=== PATIENT | female | born 1990 | race American Indian/Alaskan Native ===

== ENCOUNTER 2019-08-31 11:59 | Observation (INO) | payer MEDICAID ==
[2019-08-31] MEDS ORDERED: TERBUTALINE 1 MG/1 ML INJ SUB-Q PRN (13:00)
[2019-08-31] MEDS ORDERED: LACTATED RINGERS 1,000 ML ONE (13:03)
[2019-08-31] MEDS ORDERED: METOCLOPRAMIDE 10 MG/2 ML INJ IV ONE (13:09)
[2019-08-31] MEDS ORDERED: LACTATED RINGERS 500 ML IV ONE ×2 (13:10→13:44)
[2019-08-31 13:38] LABS: Basophils # (Auto) 0.1 K/mm3 (0.0-0.1); Basophils % (Auto) 0.8 % (0.0-1.8); Eosinophils % (Auto) 0.4 % (0.0-4.3); Hematocrit 30.2 % (30.3-42.9); Hemoglobin 10.1 gm/dl (10.1-14.3); Lymphocytes # (Auto) 1.3 K/mm3 (1.2-5.4); Lymphocytes % (Auto) 14.1 % (13.4-35.0); Mean Corpuscular HGB Conc 33 % (30-34); Mean Corpuscular Volume 90 fl (79-97); Monocytes % (Auto) 10.7 % (0.0-7.3); Platelet Count 464 K/mm3 (140-440); Red Blood Count 3.34 M/mm3 (3.65-5.03); Red Cell Distribution Width 14.6 % (13.2-15.2)
[2019-08-31 14:03] LABS: Alanine Aminotransferase 8 units/L (7-56); Albumin 3.6 g/dL (3.9-5); BUN/Creatinine Ratio 18; Blood Urea Nitrogen 9 mg/dL (7-17); Calcium 8.8 mg/dL (8.4-10.2); Hemolysis Index 130
[2019-08-31] MEDS ORDERED: MORPHINE 4 MG/1 ML INJ IV ONE (14:22)
[2019-08-31] MEDS: diphenhydrAMINE 50 MG/ML VIAL IV PRN ×2 (15:18→21:26)
[2019-08-31] MEDS: HYDROmorphone 2 MG/1 ML INJ IV PRN ×3 (15:19→21:26)
[2019-08-31] MEDS: PROMETHAZINE 25 MG TAB PO PRN ×2 (15:24→21:23)
[2019-08-31 16:14] LABS: Bilirubin,Urine NEG (Negative); Blood,Urine NEG (Negative); Color,Urine Yellow (Yellow); Mucus,Urine 3+ /HPF
[2019-08-31 16:20] LABS: Amphetamine Screen,Urine PRESUMPTIVE NEGATIVE; Benzodiazepines Screen,Urine PRESUMPTIVE NEGATIVE; Cannabinoid Screen,Urine PRESUMPTIVE POSITIVE; Cocaine Screen,Urine PRESUMPTIVE NEGATIVE; Methadone Screen,Urine PRESUMPTIVE NEGATIVE; Opiate Screen,Urine PRESUMPTIVE POSITIVE
[2019-08-31] MEDS: PANTOPRAZOLE 40 MG INJ IV SCH ×2 (16:25→21:30)
[2019-08-31] MEDS ORDERED: SODIUM CHLORIDE 0.9% 1000 ML 1,000 ML ONE (18:08)
[2019-08-31] MEDS ORDERED: DOCUSATE SODIUM 100 MG CAP PO PRN (18:23)
[2019-08-31] MEDS ORDERED: ACETAMINOPHEN 325 MG TAB PO PRN (18:23)
[2019-08-31] MEDS ORDERED: diphenhydrAMINE 25 MG CAP PO PRN (18:23)
[2019-08-31] MEDS ORDERED: NALOXONE 0.4 MG/1 ML INJ IV PRN (18:31)
[2019-08-31] MEDS: LACTATED RINGERS 1,000 ML IV SCH (19:23)
[2019-08-31] MEDS: DEXTROSE 50% IN WATER (25GM) 50 ML SYRINGE IV PRN (20:25)
[2019-09-01] MEDS: HYDROmorphone 2 MG/1 ML INJ IV PRN ×4 (00:56→10:58)
[2019-09-01] MEDS: LACTATED RINGERS 1,000 ML IV SCH (03:59)
[2019-09-01] MEDS: diphenhydrAMINE 50 MG/ML VIAL IV PRN ×2 (04:00→08:06)
[2019-09-01] MEDS: DEXTROSE 50% IN WATER (25GM) 50 ML SYRINGE IV PRN (07:53)
--- NOTE | 2019-09-01 08:31 | History and Physical Report ---
History of Present Illness Date of examination: 09/01/19 Date of admission: 08/31/19 12:32 Chief complaint: abdominal pain History of present illness: Pt is a 29 year old -[place] JIM 11/28/19 at 27w3d who presents with 3-4 day history of nausea, vomiting and abdominal pain. She has a h/o type I diabetes mellitus diagnosed at age 13 on Novolog insulin pump and subsequent gastroparesis since age 21. She reports painful episodes frequently during p regnancy, with hospitalizations about 3 times per month. 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 She denies vaginal bleeding or leakage of fluid. She lives in [place], [place] and is in town because her is in christian school. She reports no additional complications this . Since admission, the patient has received IV Dilaudid, IV hydration, IV Benadryl, and PO Phenergan which have improved her pain. She reports that she needs to go home today to take care of her daughter because her has school tomorrow. Past History Past Medical History: diabetes (per HPI ), other (Gastroparesis per HPI ) Past Surgical History: section Family/Genetic History: diabetes Social history: no significant social history - Obstetrical History Expected Date of Delivery: 11/28/19 Actual Gestation: 27 Week(s) 3 Day(s) : 2 Para: 1 Hx # Term Pregnancies: 1 Number of Pregnancies: 0 Spontaneous Abortions: 0 Induced : 0 Number of Living Children: 1 Medications and Allergies Allergies Allergy/AdvReac Type Severity Reaction Status Date / Time No Known Allergies Allergy Unverified 08/31/19 12:39 Active Meds: Active Medications Acetaminophen (Tylenol) 650 mg PO Q4H PRN PRN Reason: Pain MILD(1-3)/Fever >100.5/NAIR Dextrose (D50w (25gm) Syringe) 50 ml IV Q30MIN PRN; Protocol PRN Reason: Hypoglycemia Last Admin: 09/01/19 07:53 Dose: 20 ml Documented by: Diphenhydramine HCl (Benadryl) 25 mg IV Q6H PRN PRN Reason: Itching Last Admin: 09/01/19 08:06 Dose: 25 mg Documented by: Diphenhydramine HCl (Benadryl) 25 mg PO Q6H PRN PRN Reason: Itching Docusate Sodium (Colace) 100 mg PO Q12H PRN PRN Reason: Constipation Hydromorphone HCl (Dilaudid) 2 mg IV Q3H PRN PRN Reason: Pain , Severe (7-10) Last Admin: 09/01/19 07:58 Dose: 2 mg Documented by: Lactated Ringer's (Lactated Ringers) 1,000 mls @ 125 mls/hr IV DIRECT [facility] Last Admin: 09/01/19 03:59 Dose: 125 mls/hr Documented by: Multivitamins/Iron/Calcium ( Vitamin) 1 each PO QDAY [facility] Naloxone HCl (Naloxone) 0.1 mg IV Q2MIN PRN PRN Reason: Res Rate </= 8 or 02 SAT < 92% Pantoprazole Sodium (Protonix) 40 mg IV BID [facility] Last Admin: 08/31/19 21:30 Dose: 40 mg Documented by: Promethazine HCl (Phenergan) 25 mg PO Q6H PRN PRN Reason: Nausea And Vomiting Last Admin: 08/31/19 21:23 Dose: 25 mg Documented by: Terbutaline Sulfate (Brethine) 0.25 mg SUB-Q ONCE PRN PRN Reason: Premature Labor Review of Systems All systems: negative - Vital Signs Vital signs: Vital Signs Pulse Pulse Ox 107 H 98 08/31/19 12:42 08/31/19 12:42 Temp Pulse Resp BP Pulse Ox 67.7 F L 86 16 136/92 100 09/01/19 08:01 09/01/19 08:27 09/01/19 08:01 09/01/19 08:03 09/01/19 08:27 - Physical Exam Breasts: Positive: deferred Abdomen: Positive: soft (gravid ) Uterus: Positive: enlarged (gravid ) Extremities: Positive: normal - Obstetrical FHR: auscultation normal Uterine Contraction Monitor Mode: External Uterine Contraction Pattern: Absent Uterine Tone Measurement Phase: Resting Results Result Diagrams: 08/31/19 13:25 08/31/19 13:25 Abnormal lab results 08/31/19 08/31/19 08/31/19 Range/Units 13:25 13:25 14:37 RBC 3.34 L (3.65-5.03) M/mm3 Hct 30.2 L (30.3-42.9) % Plt Count 464 H (140-440) K/mm3 [place] % (Auto) 10.7 H (0.0-7.3) % [place] # 1.0 H (0.0-0.8) K/mm3 Seg Neutrophils % 74.0 H (40.0-70.0) % Sodium 134 L (137-145) mmol/L Creatinine 0.5 L (0.7-1.2) mg/dL Glucose 163 H (65-100) mg/dL POC Glucose 154 H (70-105) Albumin 3.6 L (3.9-5) g/dL Lipase 9 L (13-60) units/L 08/31/19 08/31/19 08/31/19 Range/Units 19:53 21:29 23:18 RBC (3.65-5.03) M/mm3 Hct (30.3-42.9) % Plt Count (140-440) K/mm3 [place] % (Auto) (0.0-7.3) % [place] # (0.0-0.8) K/mm3 Seg Neutrophils % (40.0-70.0) % Sodium (137-145) mmol/L Creatinine (0.7-1.2) mg/dL Glucose (65-100) mg/dL POC Glucose < 40 L 165 H 106 H (70-105) Albumin (3.9-5) g/dL Lipase (13-60) units/L 09/01/19 Range/Units 07:47 RBC (3.65-5.03) M/mm3 Hct (30.3-42.9) % Plt Count (140-440) K/mm3 [place] % (Auto) (0.0-7.3) % [place] # (0.0-0.8) K/mm3 Seg Neutrophils % (40.0-70.0) % Sodium (137-145) mmol/L Creatinine (0.7-1.2) mg/dL Glucose (65-100) mg/dL POC Glucose < 40 L (70-105) Albumin (3.9-5) g/dL Lipase (13-60) units/L All other labs normal. Assessment and Plan A: IUP at 27w3d Type I Diabetes Mellitus on Novolog insulin pump Gastroparesis causing pain, much improved today Previous x 1 Pt request to be discharged today P: Plan to do BPP for well being Advanced diet as tolerated Discharge later today per pt request
[2019-09-01] MEDS: PROMETHAZINE 25 MG TAB PO PRN (08:41)
--- NOTE | 2019-09-01 08:42 | Short Stay Summary ---
Short Stay Documentation Date of service: 09/01/19 - History H&P: dictated Social history: no significant social history - Allergies and Medications Current Medications: Allergies No Known Allergies Allergy (Unverified 08/31/19 12:39) Active Medications Acetaminophen (Tylenol) 650 mg PO Q4H PRN PRN Reason: Pain MILD(1-3)/Fever >100.5/NAIR Dextrose (D50w (25gm) Syringe) 50 ml IV Q30MIN PRN; Protocol PRN Reason: Hypoglycemia Last Admin: 09/01/19 07:53 Dose: 20 ml Documented by: Diphenhydramine HCl (Benadryl) 25 mg IV Q6H PRN PRN Reason: Itching Last Admin: 09/01/19 08:06 Dose: 25 mg Documented by: Diphenhydramine HCl (Benadryl) 25 mg PO Q6H PRN PRN Reason: Itching Docusate Sodium (Colace) 100 mg PO Q12H PRN PRN Reason: Constipation Hydromorphone HCl (Dilaudid) 2 mg IV Q3H PRN PRN Reason: Pain , Severe (7-10) Last Admin: 09/01/19 07:58 Dose: 2 mg Documented by: Lactated Ringer's (Lactated Ringers) 1,000 mls @ 125 mls/hr IV DIRECT [facility] Last Admin: 09/01/19 03:59 Dose: 125 mls/hr Documented by: Multivitamins/Iron/Calcium ( Vitamin) 1 each PO QDAY [facility] Naloxone HCl (Naloxone) 0.1 mg IV Q2MIN PRN PRN Reason: Res Rate </= 8 or 02 SAT < 92% Pantoprazole Sodium (Protonix) 40 mg IV BID [facility] Last Admin: 08/31/19 21:30 Dose: 40 mg Documented by: Promethazine HCl (Phenergan) 25 mg PO Q6H PRN PRN Reason: Nausea And Vomiting Last Admin: 08/31/19 21:23 Dose: 25 mg Documented by: Terbutaline Sulfate (Brethine) 0.25 mg SUB-Q ONCE PRN PRN Reason: Premature Labor - Physical exam Breasts: deferred - Hospital course Hospital course: This patient is a 29-year-old -0-0-1 at 27 weeks 3 days who was admitted for abdominal pain secondary to gastroparesis and type 1 diabetes. While she was hospitalized she received IV Dilaudid, IV hydration, Benadryl, and Phenergan which improved her symptoms significantly. On hospital day #1 the patient requested discharge to care for her other child. She will follow-up with in 1 week with her REC[facility] CENTER COORDINATOR. - Disposition Condition at discharge: Stable Disposition: DC- TO HOME OR SELFCARE - Discharge Diagnoses (1) Diabetic gastroparesis associated with type 1 diabetes mellitus Status: Acute (2) Narcotic dependency, continuous Status: Acute (3) Nausea and vomiting during Status: Acute (4) Status: Acute Qualifiers: Weeks of gestation: 27 weeks Qualified Code(s): Z3A.27 - 27 weeks gestation of (5) Previous section Status: Acute (6) Type I diabetes mellitus Status: Acute Qualifiers: Diabetes mellitus complication status: without complication Qualified Code(s): E10.9 - Type 1 diabetes mellitus without complications Short Stay Discharge Plan Activity: no restrictions Weight Bearing Status: Full Weight Bearing Diet: diabetic Additional Instructions: Please follow up with your RECORD CENTER COORDINATOR within the next 7 days. Follow up with: REMINGTON KAUR MD [Primary Care Provider] - 7 Days Prescriptions: diphenhydrAMINE [Benadryl CAP] 25 mg PO Q6HR PRN #30 capsule PRN Reason: Itching Promethazine [Phenergan] 25 mg PO Q6HR PRN #30 tab PRN Reason: Nausea
[2019-09-01] MEDS ORDERED: PRENATAL VIT27-FE FUMARATE-FOLIC ACID VIT TAB PO SCH (10:00)
[2019-09-01] MEDS: PANTOPRAZOLE 40 MG INJ IV SCH (10:34)
[2019-09-01 11:20] VITALS: BP 112/66
--- NOTE | 2019-09-01 11:43 | Ultrasound Report ---
ULTRASOUND OBSTETRIC LIMITED ULTRASOUND BIOPHYSICAL PROFILE INDICATION / CLINICAL INFORMATION: Evaluate well-being. COMPARISON: None available. FINDINGS: BREATHING MOVEMENT = 2 GROSS BODY MOVEMENT = 2 TONE = 2 QUALITATIVE AMNIOTIC FLUID VOLUME = 2 TOTAL BIOPHYSICAL SCORE = 8/8 AMNIOTIC FLUID INDEX (cm) = not measured PRESENTATION: Cephalic. HEART RATE (beats per minute): 141 ADDITIONAL FINDINGS: None. IMPRESSION: 1. Biophysical Score = 8/8 2. No significant sonographic abnormality identified on this limited exam. Signer Name: Fletcher Robertson MD Signed: 09/01/2019 11:39 AM Workstation Name: [id number]
== END 2019-09-01 12:09 | disposition home or self-care (01) ==
LOC: EDSTATUS 12:26 → EDBD 12:31 → TRG 12:31 → LD 12:31 → TRG 12:32
PROVIDERS: ADMIT Obstetrics & Gynecology; ATTEND Obstetrics & Gynecology
DX: O24.012 Pre-existing type 1 diabetes mellitus, in pregnancy, second trimester (principal); E10.43 Type 1 diabetes mellitus with diabetic autonomic (poly)neuropathy; O21.2 Late vomiting of pregnancy; K31.84 Gastroparesis; O34.219 Maternal care for unspecified type scar from previous cesarean delivery; O99.322 Drug use complicating pregnancy, second trimester; F19.20 Other psychoactive substance dependence, uncomplicated; Z96.41 Presence of insulin pump (external) (internal); Z3A.27 27 weeks gestation of pregnancy
CPT/HCPCS: 36415; 76819; 80053; 80307; 81001; 82150; 82962; 83690; 85025; 96361; 96374; 96375; 96376; C9113; G0378; J1170; J1200; J2270; J2765; J7030; J7120; Q0169

== ENCOUNTER 2019-09-05 23:38 | Outpatient (CLI) | payer OTHER ==
[2019-09-05] MEDS ORDERED: LACTATED RINGERS 500 ML IV ONE (23:52)
[2019-09-06 00:48] VITALS: BP 118/69
[2019-09-06 01:12] LABS: Basophils % (Auto) 0.4 % (0.0-1.8); Eosinophils # (Auto) 0.1 K/mm3 (0.0-0.4); Eosinophils % (Auto) 0.6 % (0.0-4.3); Hematocrit 28.3 % (30.3-42.9); Hemoglobin 9.3 gm/dl (10.1-14.3); Lymphocytes # (Auto) 2.2 K/mm3 (1.2-5.4); Lymphocytes % (Auto) 19.7 % (13.4-35.0); Mean Corpuscular HGB Conc 33 % (30-34); Mean Corpuscular Volume 90 fl (79-97); Monocytes # (Auto) 1.1 K/mm3 (0.0-0.8); Monocytes % (Auto) 9.9 % (0.0-7.3); Platelet Count 335 K/mm3 (140-440); Red Blood Count 3.14 M/mm3 (3.65-5.03); Red Cell Distribution Width 14.8 % (13.2-15.2)
[2019-09-06] MEDS ORDERED: HYDROmorphone 2 MG/1 ML INJ IV PRN (01:21)
[2019-09-06] MEDS ORDERED: PROMETHAZINE 25 MG TAB PO PRN (01:21)
[2019-09-06 01:34] LABS: Alanine Aminotransferase 6 units/L (7-56); Albumin 3.5 g/dL (3.9-5); BUN/Creatinine Ratio 12; Blood Urea Nitrogen 6 mg/dL (7-17); Calcium 8.6 mg/dL (8.4-10.2); Hemolysis Index 3
[2019-09-06] MEDS ORDERED: diphenhydrAMINE 25 MG CAP PO PRN (01:34)
[2019-09-06] MEDS ORDERED: ONDANSETRON 4 MG/2 ML INJ ONE (01:47)
[2019-09-06] MEDS ORDERED: diphenhydrAMINE 50 MG/ML VIAL IV PRN (02:14)
[2019-09-06 02:16] LABS: Bacteria,Urine 1+ /HPF (Negative); Bilirubin,Urine NEG (Negative); Blood,Urine NEG (Negative); Color,Urine Yellow (Yellow); Mucus,Urine FEW /HPF; Protein,Urine <15 mg/dL mg/dL (Negative); RBC,Urine < 1.0 /HPF (0.0-6.0); Urobilinogen,Urine < 2.0 mg/dL (<2.0)
[2019-09-06 02:20] LABS: Amphetamine Screen,Urine PRESUMPTIVE NEGATIVE; Benzodiazepines Screen,Urine PRESUMPTIVE NEGATIVE; Cannabinoid Screen,Urine PRESUMPTIVE POSITIVE; Cocaine Screen,Urine PRESUMPTIVE NEGATIVE; Methadone Screen,Urine PRESUMPTIVE NEGATIVE; Opiate Screen,Urine PRESUMPTIVE NEGATIVE
[2019-09-06] MEDS ORDERED: ONDANSETRON 4 MG/2 ML INJ IV PRN (02:30)
--- NOTE | 2019-09-06 02:31 | Ultrasound Report ---
ULTRASOUND OBSTETRIC LIMITED INDICATION / CLINICAL INFORMATION: R/O Placental abruption. Clinical Gestational Age (GA): 28 weeks. 1 days COMPARISON: None available. FINDINGS: HEART RATE (beats per minute): 138 PRESENTATION: Cephalic. ADDITIONAL FINDINGS: Placenta posterior grade 0 without previa or abruption IMPRESSION: 1. Intact placenta. No abruption Signer Name: Joni Patterson MD Signed: 09/06/2019 2:26 AM Workstation Name: [id number]
== END 2019-09-06 03:48 | disposition still patient (30) ==
LOC: TRG 23:38 → APU 23:38 → TRG 23:39
PROVIDERS: ATTEND Obstetrics & Gynecology
DX: O99.613 Diseases of the digestive system complicating pregnancy, third trimester (principal); E10.43 Type 1 diabetes mellitus with diabetic autonomic (poly)neuropathy; K31.84 Gastroparesis; Z3A.28 28 weeks gestation of pregnancy
CPT/HCPCS: 36415; 59025; 76815; 80053; 80307; 81001; 85025; 96360; 96365; 96375; J1170; J1200; J2405; J7120; 96374; Q0169